=== PATIENT | male | born 1965 | race Caucasian/White ===

== ENCOUNTER 2017-02-07 21:14 | Observation (INO) | payer OTHER ==
[~2017-02-07] VITALS: Ht 170.2 cm; Wt 89.5 kg
--- NOTE | ~2017-02-07 | HP ---
Unit #: [id number] #: [id number] Patient: SABINO RAHMAN JR [id number] [facility] [address] [place], [place] [address] [id number] I MR#: [id number] NAME: SABINO RAHMAN JR ROOM: 579 Age: 51 Sex: M Admission Date: 02/07/2017 : 1965 Attending Physician: Bhavesh Montes De Oca M.D. Referring Physician: Bhavesh Montes De Oca M.D. Primary Care Physician: Tadeo Caro M.D. HISTORY AND PHYSICAL DICTATED FOR Dr. Regina Miles of [facility]. REASON FOR ADMISSION Chest pain. HISTORY OF PRESENT ILLNESS The patient is a 51-year-old white male, who is a patient of Dr. Montes De Oca from the office for a history of coronary artery disease, status post stent to the LAD, stent to the left circumflex and an RCA stent, the latest of the stents was the RCA in 2014, on repeat cath in 2015 that stent was occluded and the patient had a reduced EF to 30% to 35%, at that time, it was decided for medical management. The patient apparently went to [facility] for workup for possible bypass surgery, however, it was deemed that there was not much viability to be bypassed, therefore, the patient was not chosen for that operation. The patient states that he then went to [facility] for a second opinion, where they did do bypass surgery in 03/2016 with a saphenous vein graft to the PDA and RCA vessels. The patient also has a history of CVA in 03/2016 while on the cath table, PE in 06/2016, paroxysmal AFib, hypertension, hyperlipidemia, lifelong nonsmoker, and reformed alcohol abuse. Heart cath in 2016 occluded RCA stent, EF 30% to 35% with med management. With a CABG after that 2 vessels at [facility], however, those records are unavailable. The patient presented to the [facility]'s ED with complaints of chest pain. He states that he has been fatigued for the last 2 days as well as having some chest aching to the left chest with exertion meaning that he could carry a case of álvarez inside from the car and once he gets to his destination and sets the álvarez down, he then feels the chest pressure but not while he is doing the activity. With the left chest aching, he also has numbness to the left arm. He states these symptoms came and went over the past couple of days, but was most noticeable as mentioned after doing exertional activity. He also does have some associated shortness of breath, nausea, diaphoresis, and dizziness. After his CABG in 2015, he states that 6 months after that, he had done pretty well with no symptoms and no fatigue. However, for the past few days, he has began to have the fatigue. He also had a rotator cuff surgery about 3 to 4 months ago and tolerated that well. PAST MEDICAL HISTORY 1. Coronary artery disease, status post stents in 2013 and 2014 with CABG Unit #: [id number] #: [id number] Patient: SABINO RAHMAN JR in 2015. 2. CVA in 03/2016 on the catheterization table. 3. Pulmonary embolus in 06/2016. The patient is on Eliquis. 4. PAF. 5. Hypertension. 6. Hyperlipidemia. 7. Reformed alcohol. 8. Never used tobacco. PAST SURGICAL HISTORY History of angioplasty and cardiac cath and rotator cuff surgery. SOCIAL HISTORY He is a reformed alcohol abuser, but denies any tobacco or illicit drug abuse. The patient states that he does live at home with his , he also has a grandson there. He does work some, but not quite as much he was prior to his bypass surgery. FAMILY HISTORY No known family history. REVIEW OF SYSTEMS A 10-point review of systems negative except for what is listed above in the HPI. PHYSICAL EXAMINATION GENERAL: This is a 51-year-old white male, who is alert and oriented x3, in no apparent distress. VITAL SIGNS: Blood pressure 146/88, temperature 98.6, pulse 65, respirations are 18. HEENT: Pupils are equal, round, and reactive. Oral mucosa is moist. NECK: No JVD. No thyromegaly. No lymphadenopathy. No carotid bruits. HEART: S1, S2. No S3 or S4. No clicks, no rubs, no murmurs. LUNGS: Clear. ABDOMEN: Soft. Bowel sounds positive. Nontender. Nondistended. EXTREMITIES: No swelling. NEUROLOGICAL: No neuro deficits noted. DIAGNOSTIC STUDIES LABORATORY RESULTS: Includes troponin 0.03, then less than 0.03, then less than 0.03. White count 6.3, hemoglobin 10, hematocrit 31, platelets 215. Sodium 140, potassium 3.5, chloride 109, CO2 of 24, glucose 92, BUN 11, creatinine 0.9. Magnesium 1.7. AST 18, ALT 17, alkaline phosphatase 59. CARDIOVASCULAR STUDIES: EKG shows normal sinus rhythm with early repolarization noted in the inferior leads. Those changes were also noted back in 12/2015 and consistently on every EKG at [facility] since then. IMPRESSION 1. Chest pain. 2. History of coronary artery disease with stents in 2013, 2014, and then bypass surgery in 2015. 3. Cerebrovascular accident in 03/2016 on the catheterization table. 4. Pulmonary embolism in 06/2016. 5. Paroxysmal atrial fibrillation. 6. Hypertension. 7. Hyperlipidemia. Unit #: [id number] #: [id number] Patient: SABINO RAHMAN JR 8. Lifelong nonsmoker. 9. Reformed alcohol abuse. PLAN We will send patient for exercise Cardiolite stress test today and continue Eliquis b.i.d. Further recommendations pending stress test results. ADDENDUM The patient completed exercise Cardiolite stress test at 1:30. He exercised for 8 minutes 47 seconds. He complained of chest tightness. Dr. Miles reviewed the nuclear images and it was normal, therefore, the patient is going to be discharged home today. The patient's blood pressure was a little high on the treadmill, therefore, he will receive his morning blood pressure medications and then have his blood pressure recheck if that is normal he will then be discharged home. The patient will then follow up with Dr. Montes De Oca on 03/23/2017 at 2:30 p.m. DISCHARGE MEDICATIONS Include Eliquis 5 mg p.o. b.i.d., Xanax 0.25 mg p.o. b.i.d. as needed, metoprolol 25 mg p.o. b.i.d., docusate two tabs p.o. at bedtime, lisinopril 20 mg p.o. daily, aspirin 81 mg p.o. daily, oxycodone IR 5 mg t.i.d. as needed for pain, Ranexa 500 mg p.o. b.i.d., Protonix 40 mg p.o. daily, isosorbide mononitrate 60 mg p.o. daily. Dictated by ALBERTO Zuñiga M.D. LA/modl TD: 02/09/2017 08:12 JOB #: [id number] HISTORY AND PHYSICAL Page 1 of 1 X X HISTORY AND PHYSICAL
--- NOTE | ~2017-02-07 | EKG ---
PATIENT: SABINO RAHMAN UNIT #: [id number] Ventricular Rate: 63 BPM Atrial Rate: 63 BPM P-R Interval: 164 ms QRS Duration: 94 ms Q-T Interval: 462 ms QTC Calculation(Bezet): 472 ms P Liscomb: 6 degrees Calculated R Liscomb: 78 degrees Calculated T Liscomb: 71 degrees Diagnosis Line: Normal sinus rhythm Diagnosis Line: Normal ECG Diagnosis Line: When compared with ECG of 18-AUG-2016 03:49, Diagnosis Line: Nonspecific T wave abnormality no longer evident Diagnosis Line: in Inferior leads Diagnosis Line: Confirmed by WESLEY GALLO MD ([id number]) on Diagnosis Line: 02/09/2017 7:12:27 AM INTERPRETING MD: MANJU
--- NOTE | ~2017-02-07 | TH ---
Unit #: [id number] #: [id number] Patient: SABINO RAHMAN JR [id number] [address] [place], [place] [address] [id number] I MR#: [id number] NAME: SABINO RAHMAN JR : 1965 SEX: M STUDY DATE/TIME: 02/08/2017 UNIT: [facility] ROOM: 579 STUDY DESCRIPTION: Exercise stress test - Nuclear Attending Physician: Bhavesh Montes De Oca M.D. Referring Physician: Bhavesh Montes De Oca M.D. Primary Care Physician: Tadeo Caro M.D. CARDIOLOGY REPORT PROCEDURE PERFORMED Exercise Cardiolite stress test - Nuclear portion. PROCEDURE Using technetium 99m-labeled Cardiolite, rest and stress SPECT images were obtained. Multiple SPECT images were obtained in various views, including horizontal and vertical long axis and short axis views of the left ventricle. Images were obtained by gated SPECT method. The patient was administered 11.59 mCi of Cardiolite at rest. The patient was administered 29.9 mCi of Cardiolite at peak exercise. Total exercise time is 8 minutes and 47 seconds. On the stress images, there is normal perfusion noted. The rest images show normal perfusion. Comparing the rest and stress images, there is no stress-induced ischemia noted. The left ventricular ejection fraction is calculated to be 54%. There is septal hypokinesis seen. CONCLUSION Normal exercise Cardiolite stress test. Dictated by... Michael Aggarwal TD: 02/08/2017 16:11 JOB #: [id number] CARDIOLOGY REPORT Page 1 of 1 X Regina Miles MD <ELECTRONICALLY SIGNED> 04/06/17 1524 CARDIOLOGY REPORT
--- NOTE | ~2017-02-07 | ST ---
Unit #: [id number] #: [id number] Patient: SABINO RAHMAN JR [id number] [address] [address] [id number] I MR#: [id number] NAME: SABINO RAHMAN JR : 1965 SEX: M STUDY DATE/TIME: 02/08/2017 UNIT: [facility] ROOM: 579 STUDY DESCRIPTION: Exercise stress test Attending Physician: Bhavesh Montes De Oca M.D. Referring Physician: Bhavesh Montes De Oca M.D. Primary Care Physician: Tadeo Caro M.D. CARDIOLOGY REPORT PROCEDURE PERFORMED Exercise Cardiolite stress test. SUMMARY Baseline EKG shows normal sinus rhythm with a rate of 77 beats per minute. There are Q waves noted in the inferior leads with questionable old inferior infarct, premature atrial complex. The patient exercised on the treadmill using the Jimbo protocol for 8 minutes and 47 seconds, achieving a workload of 10.5 METS. He reached 89% of the maximum age-predicted heart rate at 150 beats per minute with a maximum blood pressure response of 200/108 mmHg. The patient had a complaint of left anterior aching chest pain rated a 4/10 at 4 minutes and 43 seconds into the test. He had no changes in his electrocardiogram. There were no ST-T wave abnormalities noted. Had occasional premature atrial complex. His chest pain was decreased to 2/10 at the end of the test. The test was terminated secondary to achievement of the target heart rate. IMPRESSION 1. Functional class I with good exercise tolerance with a workload of 10.5 METS. 2. The patient reached 89% of the maximum age-predicted heart rate at 150 beats per minute with a hypertensive blood pressure response. 3. The patient had a complaint of left anterior aching pain rated a 4/10 during the test. Decreased in the recovery phase. 4. EKG during exercise showed no ST-T wave abnormalities that differed from baseline. Was noted for occasional premature atrial complex. 5. Cardiolite was injected at peak exercise with radionuclide test pending. 6. Of note, the patient did not receive his antihypertensive medications prior to the test. 7. Please correlate these results with nuclear images. Dictated by... Erickson Gerard A.P.R.N. for Michael Aggarwal/blake TD: 02/08/2017 15:10 JOB #: [id number] Unit #: [id number] #: [id number] Patient: SABINO RAHMAN JR CARDIOLOGY REPORT Page 1 of 1 X Erickson Gerard APRN CARDIOLOGY REPORT
--- NOTE | ~2017-02-07 | CO ---
Unit #: [id number] #: [id number] Patient: SABINO RAHMAN JR [id number] [address] [place], [place] [address] [id number] I MR#: [id number] NAME: SABINO RAHMAN JR ROOM: 579 Age: 51 Sex: M Admission Date: 02/07/2017 : 1965 Attending Physician: Bhavesh Montes De Oca M.D. Primary Care Physician: Tadeo Caro M.D. CONSULTATION REPORT REASON FOR ADMISSION Chest pain. HISTORY OF PRESENT ILLNESS The patient is a 51-year-old, white male who is a patient of Dr. Montes De Oca's in the office for a history of coronary artery disease, status post stent to the LAD, stent to the left circumflex, and a RCA stent. The latest of the stents was the RCA in 2014. On repeat cath in 2015, that stent was occluded and the patient had a reduced EF to 30% to 35%. At that time, it was decided for medical management. Patient apparently went to [facility] for workup for possible bypass surgery; however, it was deemed that there was not much viability to be bypassed. Therefore, patient was not chosen for that operation. Patient states that he then went to the [facility] for a second opinion where they did do bypass surgery in March 2016 with a saphenous vein graft to the PDA and RCA vessels. Patient also has a history of CVA in March of 2016 while on the cath table, PE in June of 2016, paroxysmal AFib, hypertension, hyperlipidemia, lifelong nonsmoker, and reformed alcohol abuse. Heart cath in 2016: Occluded RCA stent, EF 30% to 35% with med management. With a CABG after that to two vessels; however, those records are unavailable. Patient presented to the [place] ED with complaints of chest pain. He states that he has been fatigued for the last two days as well as having some chest aching to the left chest with exertion meaning that he could carry a case of water inside from the car and once he gets to his destination and sits the water down he then feels the chest pressure, but not while he is doing the activity. With the left chest aching, he also has numbness to the left arm. He states these symptoms came and went over the past couple of days, but was most noticeable as mentioned after doing exertional activity. He also (1) had some associated shortness of breath, nausea, diaphoresis, and dizziness. After his CABG in 2016, he states for 6 months after that he had done pretty well with no symptoms and no fatigue. However, for the past few days, he has began to have the fatigue. He also had a rotator cuff surgery about 3-4 months ago and tolerated that well. PAST MEDICAL HISTORY 1. Coronary artery disease, status post stents in 2013 and 2014 with CABG in 2016. 2. CVA March 2016 on the cath table. 3. Pulmonary embolus in June 2016. Patient is on Eliquis. 4. PAF. Unit #: [id number] #: [id number] Patient: SABINO RAHMAN JR 5. Hypertension. 6. Hyperlipidemia. 7. Reformed alcohol. 8. Never used tobacco. SURGICAL HISTORY History of angioplasty and cardiac cath surgery and rotator cuff surgery. SOCIAL HISTORY He is a reformed alcohol abuser, but denies any tobacco or illicit drug abuse. Patient states that he does live at home with his . He also has a grandson there. He does work some, but not quite as much as he was prior to his bypass surgery. FAMILY HISTORY No known family history. REVIEW OF SYSTEMS Ten-point review of systems negative, except for what is listed above in the HPI. PHYSICAL EXAMINATION GENERAL: This is a 51-year-old, white male who is alert and oriented x3 in no apparent distress. VITAL SIGNS: Blood pressure 146/88, temp 98.6, pulse 65, and respirations are 18. HEENT: Pupils are equal, round, and reactive. Oral mucosa is moist. NECK: No JVD. No thyromegaly. No lymphadenopathy. No carotid bruits. HEART: S1 and S2. No S3 or S4. No clicks. No rubs. No murmurs. LUNGS: Clear. ABDOMEN: Soft. Bowel sounds positive. Nontender and nondistended. EXTREMITIES: No swelling. NEUROLOGICAL: No neuro deficits noted. DIAGNOSTIC STUDIES Diagnostic testing includes: LABORATORY: Troponin 0.03 then less than 0.03 then less then 0.03. White count 6.3, hemoglobin 10, hematocrit 31, and platelets 215. Sodium 140, potassium 3.5, chloride 109, CO2 24, glucose 92, BUN 11, creatinine 0.9, mag 1.7, AST 18, ALT 17, and alk phos 59. CARDIOVASCULAR: EKG shows normal sinus rhythm with some early repolarization noted in the inferior leads. Those changes were also noted back in December of last year and consistently on every EKG at [facility] since then. IMPRESSION 1. Chest pain. 2. History of coronary disease with stents in 2013 and 2014 and then bypass surgery in 2016. 3. Cerebrovascular accident in March 2016 on the cath table. 4. Pulmonary embolus, June of 2016. 5. Paroxysmal atrial fibrillation. 6. Hypertension. 7. Hyperlipidemia. 8. Lifelong nonsmoker. 9. Reformed alcohol abuse. Unit #: [id number] #: [id number] Patient: SABINO RAHMAN JR PLAN Will send patient for exercise Cardiolite stress test today and continue Eliquis twice a day. Further recommendations pending stress test results. ADDENDUM Patient completed exercise Cardiolite stress test at 1:30. He exercised for 8 minutes and 47 seconds. He complained of chest tightness. Dr. Miles reviewed the nuclear images and it was normal. Therefore, patient is going to be discharged home today. Patient's blood pressure was a little high on the treadmill. Therefore, he will receive his morning blood pressure medications and then have his blood pressure rechecked. If that is normal, he will then be discharged home. Patient will then follow up with Dr. Montes De Oca on March 23 at 2:30 p.m. DISCHARGE MEDICATIONS Include: 1. Eliquis 5 mg p.o. twice a day. 2. Xanax 0.25 mg p.o. twice a day as needed. 3. Metoprolol 25 mg p.o. twice a day. 4. Docusate 2 tabs p.o. at bedtime. 5. Lisinopril 20 mg p.o. daily. 6. Aspirin 81 mg p.o. daily. 7. Oxycodone IR 5 mg 3 times a day as needed for pain. 8. Ranexa 500 mg p.o. twice a day. 9. Protonix 40 mg p.o. daily. 10. Isosorbide mononitrate 50 mg p.o. daily. Dictated by... Mindy Delcid APRN for Michael Aggarwal TD: 02/11/2017 09:07 JOB #: [id number] CONSULTATION REPORT Page 1 of 1 X X CONSULTATION REPORT
[~2017-02-07 21:14] MED LIST: ACETAMINOPHEN650 M1 PO; ACIPHEX20 MG; ALPRAZOLAM PO; AMIODARONE HCL100 MG PO; ASPIRIN EC81 M1 PO; ASPIRIN PO; ASPIRIN81 M1 PO; ASPIRIN81 M2 PO; ASPIRIN81 MG PO; BENTYL20 MG PO; CELEXA20 MG PO; ELIQUIS5 MG PO; IMDUR-ER30 M1 PO; IMDUR-ER30 M3 PO; IMDUR-ER60 M1 PO; LIPITOR PO; LIPITOR40 MG PO; LIPITOR80 MG PO; LISINOPRIL20 MG PO; METAMUCIL SMOOT1 PKT PO; METOPROLOL SUCC25 MG PO; METOPROLOL TAR100 MG PO; METOPROLOL TAR25 MG PO; NITROGLYCERIN0.4 MG SL; NITROSTAT0.4 MG SL; NORVASC PO; OXYCODONE HCL5 MG PO; PACERONE PO; PHENERGAN25 M1 PO; PLAVIX PO; PLAVIX300 MG PO; PRINIVIL40 MG PO; PROTONIX PO; RANEXA1000 MG PO; ROXICODONE5 M1 PO; SENNA PO; TOPROL XL; TOPROL XL 50 MG50 MG PO; TOPROL XL50 MG PO; ZESTRIL40 MG PO
[2017-02-08] MEDS ORDERED: OXYCODONE15 M1 PO (00:27)
[2017-02-08 01:32] LABS: MB 3.4 ng/ml
[2017-02-08 05:34] LABS: MEAN CELL VOLUME 73.1 FL (83-96); MEAN CORPUSCULAR HEMOGLOBIN 23.6 PG (28-34); MEAN CORPUSCULAR HGB CONC 32.3 g/dL (30-36); MEAN PLATELET VOLUME 6.8 FL (6.5-11.5); RED BLOOD COUNT 4.24 X10e (3.90-5.60); RED CELL DISTRIBUTION WIDTH 17.7 % (11.0-15.5); WHITE BLOOD COUNT 6.3 X10e3 (4.0-10.5)
[2017-02-08 06:14] LABS: ALBUMIN SERUM 3.4 g/dL (3.5-5.0); BILIRUBIN,TOTAL 0.3 mg/dL (0.2-2.0); BUN/CREATININE RATIO 12.22; CALCIUM SERUM 8.9 mg/dL (8.4-10.2); CREATININE SERUM 0.9 mg/dL (0.6-1.4); GLOM FILT RATE Estimated 97.9 mL/min (>60); MAGNESIUM 1.7 mg/dL (1.6-3.0); POTASSIUM 3.5 mmol/L (3.5-5.1); PROTEIN TOTAL SERUM 6.3 g/dL (6.0-8.3)
[2017-02-08 07:51] LABS: %MB 3.9 % (0.0-4.0)
[2017-02-08] MEDS ORDERED: RANEXA500 MG PO (15:10)
[2017-02-08] MEDS ORDERED: ELIQUIS5 MG PO (15:12)
[2017-02-08] MEDS ORDERED: LISINOPRIL20 MG PO (15:13)
[2017-02-08 15:36] LABS: %MB 3.8 % (0.0-4.0); MB 3.7 ng/ml
== END 2017-02-08 18:15 | disposition home or self-care (01) ==
LOC: UNDOADMOB 21:14 → C5C 21:14 → UNDOADMIN 22:33 → C5C 02-08 18:15
PROVIDERS: Internal Medicine Cardiovascular Disease
DX: R07.89 Other chest pain (principal); I25.10 Atherosclerotic heart disease of native coronary artery without angina pectoris; Z95.1 Presence of aortocoronary bypass graft; Z95.5 Presence of coronary angioplasty implant and graft; Z86.73 Personal history of transient ischemic attack (TIA), and cerebral infarction without residual deficits; Z86.711 Personal history of pulmonary embolism; I48.0 Paroxysmal atrial fibrillation; Z79.01 Long term (current) use of anticoagulants; I10 Essential (primary) hypertension; E78.5 Hyperlipidemia, unspecified; Z87.898 Personal history of other specified conditions
CPT/HCPCS: 78452; 80053; 82550; 82553; 83735; 84484; 85027; 93005; 93017; A9500; G0378; J2785